=== PATIENT | female | born 1935 | race Caucasian/White ===

== ENCOUNTER 2016-05-17 19:09 | Emergency (ER) | payer MEDICARE, BC ==
[~2016-05-17] VITALS: Ht 170.2 cm; Wt 57.0 kg
[~2016-05-17 19:09] MED LIST: CARV12.5 PO; ESTR1 PO; MEDR2.5 PO; OMEP20CA5 PO; ROSU10 PO; SPIR25 PO; TELM40 PO
[2016-05-17 19:12] VITALS: BP 116/65; PULSE 79; RESP 18; TEMP 97.6; O2SAT 98
[2016-05-17] MEDS ORDERED: SODIUM CHLOR 0.9% 1000 ML INJ 1,000 ML IV SCH (19:39)
--- NOTE | 2016-05-17 19:43 | PD ---
HPI Chief Complaint: GI Complaint Time Seen by Provider: 19:34 Travel History International Travel<30 days: No Contact w/Intl Traveler<30days: No Traveled to known affect area: No History of Present Illness HPI 80-year-old female here for evaluation of nausea, vomiting, and diarrhea. Symptoms started 3 days ago with vomiting followed by diarrhea. The patient took 2 tabs of Imodium and has not had any diarrhea since. Symptoms seemed to improve somewhat yesterday, however today she has felt very nauseous has had few episodes of vomiting as well as dry heaving. Emesis and bowel movements are nonbloody. She denies abdominal pain. No chest pain or dyspnea. No fevers or chills. One of the patient's relatives had similar symptoms about a week ago. Recent cruise 2 weeks ago, no other travel history. PFSH Past Medical History Arthritis: Yes Blood Disorders: No Cancer: No Cardiovascular Problems: Yes (CARDIOMYOPATHY) High Cholesterol: Yes Endocrine: No GERD: Yes Genitourinary: Yes (CONSTANT BLADDER PRESSURE) Headaches: Yes Immune Disorder: No Musculoskeletal: Yes Neurologic: Yes Psychiatric: No Reproductive: Yes (PROLAPSE UTERUS) Respiratory: No Past Surgical History Abdominal Surgery: Yes (CHOLECYSTECTOMY-I&D LIVER ABCESS) Cholecystectomy: Yes Social History Alcohol Use: No Tobacco Use: No Substance Use: No Allergies-Medications (Allergen,Severity, Reaction): Coded Allergies: Amoxicillin (Verified Allergy, Severe, HIVES, 03/27/08) Reported Meds & Prescriptions Reported Meds & Active Scripts Active Zofran Odt (Ondansetron Odt) 4 Mg Tab 4 Mg SL Q8HR PRN Reported Estrace (Estradiol) 1 Mg Tab 1 Mg PO DAILY Provera (Medroxyprogesterone Acetate) 2.5 Mg Tab 2.5 Mg PO DAILY Micardis (Telmisartan) 40 Mg Tab 40 Mg PO HS Aldactone 25 mg (Spironolactone) 25 Mg Tab 25 Mg PO BID Coreg 12.5 mg (Carvedilol) 12.5 Mg Tab 12.5 Mg PO BID Prilosec 20 mg (Omeprazole) 20 Mg Capcr 20 Mg PO DAILY Crestor (Rosuvastatin Calcium) 10 Mg Tab 10 Mg PO DAILY Review of Systems Except as stated in HPI: all other systems reviewed are Neg Physical Exam Narrative GENERAL: Pleasant, well-developed, well-nourished, elderly-appearing female, dry heaving into an emesis bag SKIN: Warm and dry. HEAD: Atraumatic. Normocephalic. EYES: Pupils equal and round. No scleral icterus. No injection or drainage. ENT: Mucous membranes pink and dry. NECK: Trachea midline. No JVD. CARDIOVASCULAR: Regular rate and rhythm. RESPIRATORY: No accessory muscle use. Clear to auscultation. Breath sounds equal bilaterally. GASTROINTESTINAL: Abdomen soft, non-tender, nondistended. MUSCULOSKELETAL: No obvious deformities. No clubbing. No cyanosis. No edema. NEUROLOGICAL: Awake and alert. No obvious cranial nerve deficits. Motor grossly within normal limits. Normal speech. PSYCHIATRIC: Appropriate mood and affect; insight and judgment normal. Data Data Last Documented VS Vital Signs Date Time Temp Pulse Resp B/P Pulse Ox O2 Delivery O2 Flow Rate FiO2 05/17/16 19:52 97.6 79 18 116/65 98 05/17/16 19:51 Room Air Orders Complete Blood Count With Diff (05/17/16 19:39) Comprehensive Metabolic Panel (05/17/16 19:39) Lipase (05/17/16 19:39) Prothrombin Time / Inr (Pt) (05/17/16 19:39) Act Partial Throm Time (Ptt) (05/17/16 19:39) Iv Access Insert/Monitor (05/17/16 19:39) Ecg Monitoring (05/17/16 19:39) Oximetry (05/17/16 19:39) Ondansetron Inj (Zofran Inj) (05/17/16 19:45) Sodium Chlor 0.9% 1000 Ml Inj (Ns 1000 M (05/17/16 19:39) Sodium Chloride 0.9% Flush (Ns Flush) (05/17/16 19:45) Influenzae A/B Antigen (05/17/16 19:39) Oral Rehydration (05/17/16 20:29) Labs Laboratory Tests Test 05/17/16 20:02 White Blood Count 10.3 TH/MM3 Red Blood Count 3.80 MIL/MM3 Hemoglobin 12.0 GM/DL Hematocrit 36.2 % Mean Corpuscular Volume 95.3 FL Mean Corpuscular Hemoglobin 31.6 PG Mean Corpuscular Hemoglobin 33.2 % Concent Red Cell Distribution Width 13.0 % Platelet Count 270 TH/MM3 Mean Platelet Volume 7.8 FL Neutrophils (%) (Auto) 78.6 % Lymphocytes (%) (Auto) 13.7 % Monocytes (%) (Auto) 6.4 % Eosinophils (%) (Auto) 0.8 % Basophils (%) (Auto) 0.5 % Neutrophils # (Auto) 8.0 TH/MM3 Lymphocytes # (Auto) 1.4 TH/MM3 Monocytes # (Auto) 0.7 TH/MM3 Eosinophils # (Auto) 0.1 TH/MM3 Basophils # (Auto) 0.1 TH/MM3 CBC Comment DIFF FINAL Differential Comment Prothrombin Time 10.1 SEC Prothromb Time International 0.9 RATIO Ratio Activated Partial 26.6 SEC Thromboplast Time Sodium Level 140 MEQ/L Potassium Level 4.0 MEQ/L Chloride Level 106 MEQ/L Carbon Dioxide Level 27.8 MEQ/L Anion Gap 6 MEQ/L Blood Urea Nitrogen 17 MG/DL Creatinine 0.73 MG/DL Estimat Glomerular Filtration 77 ML/MIN Rate Random Glucose 118 MG/DL Calcium Level 9.0 MG/DL Total Bilirubin 0.3 MG/DL Aspartate Amino Transf 22 U/L (AST/SGOT) Alanine Aminotransferase 26 U/L (ALT/SGPT) Alkaline Phosphatase 59 U/L Total Protein 7.6 GM/DL Albumin 3.7 GM/DL Lipase 272 U/L MDM Medical Decision Making Medical Screen Exam Complete: Yes Emergency Medical Condition: Yes Differential Diagnosis Gastroenteritis, dehydration, gastritis, electrolyte abnormality Narrative Course Vital signs are within normal limits. CBC is unremarkable. CMP is unremarkable. Lipase is 272. Influenza is negative. The patient was given IV Zofran and a liter of IV fluids and is feeling a lot better. She is no longer nauseous. She is tolerating clear liquids in the emergency department. She is stable for discharge home with outpatient follow- up with her primary care physician this week. She is likely suffering from gastroenteritis. Her abdominal exam shows no tenderness, no peritoneal signs. She will be discharged home with a perception for Zofran. She was informed on when to return to the emergency department. She verbalizes understanding and agreement with plan. Diagnosis Primary Impression: Gastroenteritis Referrals: Primary Care Physician 3 days Additional Instructions: Follow-up with your primary care physician this week. Stay hydrated with plenty of fluids. Return to the emergency department for worsening symptoms or any other concerns. Scripts Ondansetron Odt (Zofran Odt)4 Mg Tab4 Mg SL Q8HR PRN (Nausea/Vomiting) #20 TAB Ref 0 Prov:Raul Williamson MD 05/17/16 Disposition: 01 DISCHARGE HOME Condition: Stable Raul Williamson MD May 17, 2016 19:43 Raul Williamson MD May 17, 2016 19:43
[2016-05-17] MEDS ORDERED: SODIUM CHLORIDE 0.9% FLUSH 5 ML FLUSH IVF PRN (19:45)
[2016-05-17] MEDS ORDERED: ONDANSETRON HCL 4 MG/2 ML VIAL IVP ONE (19:45)
[2016-05-17 19:51] VITALS: RESP 14; O2SAT 98
[2016-05-17 19:52] VITALS: BP 116/65; PULSE 79; RESP 18; TEMP 97.6; O2SAT 98
[2016-05-17 20:13] LABS: BASOPHIL # 0.1 TH/MM3 (0-0.2); BASOPHIL % 0.5 % (0.0-2.0); EOSINOPHIL # 0.1 TH/MM3 (0-0.4); EOSINOPHIL % 0.8 % (0.0-4.0); HEMATOCRIT 36.2 % (35.0-46.0); LYMPH % 13.7 % (9.0-44.0); LYMPHOCYTE # 1.4 TH/MM3 (1.0-4.8); MEAN CELL VOLUME 95.3 FL (80.0-100.0); MEAN CORPUSCULAR HEMOGLOBIN 31.6 PG (27.0-34.0); MEAN CORPUSCULAR HGB CONC 33.2 % (32.0-36.0); MONO % 6.4 % (0.0-8.0); NEUT % 78.6 % (16.0-70.0); PLATELET COUNT 270 TH/MM3 (150-450); WHITE BLOOD COUNT 10.3 TH/MM3 (4.0-11.0)
[2016-05-17 20:15] LABS: HEMO FLAGS DIFF FINAL
[2016-05-17 20:24] LABS: CHLORIDE 106 MEQ/L (98-107); SODIUM (NA) 140 MEQ/L (136-145)
[2016-05-17 20:28] LABS: ANION GAP 6 MEQ/L (5-15); APTT (PATIENT) 26.6 SEC (24.3-30.1); BICARBONATE 27.8 MEQ/L (21.0-32.0); BLOOD UREA NITROGEN 17 MG/DL (7-18); INTERNATIONAL NORMALIZED RATIO 0.9 RATIO; PROTHROMBIN TIME - PATIENT 10.1 SEC (9.8-11.6)
[2016-05-17 20:31] LABS: ALT (GPT) 26 U/L (10-53); AST (GOT) 22 U/L (15-37); GLOMERULAR FILTRATION RATE 77 ML/MIN (>89)
[2016-05-17 20:33] LABS: TOTAL BILIRUBIN ADULT 0.3 MG/DL (0.2-1.0)
[2016-05-17 20:34] LABS: ALKALINE PHOSPHATASE 59 U/L (45-117)
[2016-05-17] MEDS ORDERED: ZOFR4TAB3 SL (20:46)
[2016-05-17 21:25] VITALS: BP 114/60; PULSE 78; RESP 18; O2SAT 98
== END 2016-05-17 21:26 | disposition home or self-care (01) ==
LOC: PHEFT 19:09
DX: K52.9 Noninfective gastroenteritis and colitis, unspecified (principal); E78.00 Pure hypercholesterolemia, unspecified; I42.9 Cardiomyopathy, unspecified
CPT/HCPCS: 80053; 83690; 85025; 85610; 85730; 87804; 96361; 96374; 99284; J2405; J7030

== ENCOUNTER → 2016-08-19 | Outpatient (CLI) | payer MEDICARE, BC ==
[~2016-08-19] MED LIST changes: +ZOFR4TAB3 SL
[2016-08-19 13:24] LABS: HEMATOCRIT 34.2 % (35.0-46.0); MEAN CELL VOLUME 93.9 FL (80.0-100.0); MEAN CORPUSCULAR HEMOGLOBIN 32.1 PG (27.0-34.0); MEAN CORPUSCULAR HGB CONC 34.2 % (32.0-36.0); PLATELET COUNT 264 TH/MM3 (150-450); RED BLOOD COUNT 3.64 MIL/MM3 (4.00-5.30); RED CELL DISTRIBUTION WIDTH 13.7 % (11.6-17.2); REVIEW FLAG FINAL; WHITE BLOOD COUNT 6.2 TH/MM3 (4.0-11.0)
[2016-08-19 14:02] LABS: ANION GAP 8 MEQ/L (5-15); AST (GOT) 14 U/L (15-37); BICARBONATE 28.8 MEQ/L (21.0-32.0); BLOOD UREA NITROGEN 17 MG/DL (7-18); CHLORIDE 106 MEQ/L (98-107); GLOMERULAR FILTRATION RATE 73 ML/MIN (>89); GLUCOSE,FASTING 84 MG/DL (74-99); POTASSIUM 4.1 MEQ/L (3.5-5.1); SODIUM (NA) 143 MEQ/L (136-145)
[2016-08-19 14:06] LABS: ALKALINE PHOSPHATASE 57 U/L (45-117); ALT (GPT) 16 U/L (10-53); HDL CHOLESTEROL 64.3 MG/DL (40.0-60.0); LDL CHOLESTEROL 71 MG/DL (0-99); LDL CHOLESTEROL DIRECT 81 MG/DL (0-99); TOTAL BILIRUBIN ADULT 0.5 MG/DL (0.2-1.0)
== END ==
LOC: PLAB 10:26
PROVIDERS: ATTEND Family Medicine
DX: E78.00 Pure hypercholesterolemia, unspecified (principal); E11.9 Type 2 diabetes mellitus without complications; I10 Essential (primary) hypertension
CPT/HCPCS: 36415; 80053; 80061; 83721; 85027

== ENCOUNTER → 2016-11-25 | Outpatient (CLI) | payer MEDICARE, BC ==
[2016-11-25 13:09] LABS: HEMATOCRIT 34.8 % (35.0-46.0); MEAN CELL VOLUME 94.2 FL (80.0-100.0); MEAN CORPUSCULAR HEMOGLOBIN 32.1 PG (27.0-34.0); MEAN CORPUSCULAR HGB CONC 34.1 % (32.0-36.0); PLATELET COUNT 256 TH/MM3 (150-450); RED BLOOD COUNT 3.69 MIL/MM3 (4.00-5.30); RED CELL DISTRIBUTION WIDTH 13.4 % (11.6-17.2); REVIEW FLAG FINAL; WHITE BLOOD COUNT 5.6 TH/MM3 (4.0-11.0)
[2016-11-25 13:43] LABS: ALT (GPT) 20 U/L (10-53); ANION GAP 7 MEQ/L (5-15); AST (GOT) 17 U/L (15-37); BICARBONATE 28.2 MEQ/L (21.0-32.0); BLOOD UREA NITROGEN 16 MG/DL (7-18); CHLORIDE 105 MEQ/L (98-107); GLOMERULAR FILTRATION RATE 65 ML/MIN (>89); GLUCOSE,FASTING 103 MG/DL (74-99); POTASSIUM 4.2 MEQ/L (3.5-5.1); SODIUM (NA) 140 MEQ/L (136-145)
[2016-11-25 13:46] LABS: ALKALINE PHOSPHATASE 66 U/L (45-117); HDL CHOLESTEROL 65.4 MG/DL (40.0-60.0); LDL CHOLESTEROL 77 MG/DL (0-99); LDL CHOLESTEROL DIRECT 82 MG/DL (0-99); TOTAL BILIRUBIN ADULT 0.6 MG/DL (0.2-1.0)
[2016-11-25 17:14] LABS: HEMOGLOBIN A1a 1.1 %; HEMOGLOBIN A1b 1.6 %; HEMOGLOBIN Ao 85.1 %; HEMOGLOBIN P3 3.8 %
== END ==
LOC: PLAB 09:14
PROVIDERS: ATTEND Family Medicine
DX: E11.9 Type 2 diabetes mellitus without complications (principal); E78.5 Hyperlipidemia, unspecified; I10 Essential (primary) hypertension
CPT/HCPCS: 36415; 80053; 80061; 83036; 83721; 85027

== ENCOUNTER → 2017-03-02 | Outpatient (CLI) | payer MEDICARE, BC ==
[2017-03-02 13:10] LABS: HEMATOCRIT 34.6 % (35.0-46.0); MEAN CELL VOLUME 96.7 FL (80.0-100.0); MEAN CORPUSCULAR HEMOGLOBIN 32.7 PG (27.0-34.0); MEAN CORPUSCULAR HGB CONC 33.8 % (32.0-36.0); PLATELET COUNT 240 TH/MM3 (150-450); RED BLOOD COUNT 3.58 MIL/MM3 (4.00-5.30); RED CELL DISTRIBUTION WIDTH 13.4 % (11.6-17.2); REVIEW FLAG FINAL; WHITE BLOOD COUNT 5.6 TH/MM3 (4.0-11.0)
[2017-03-02 13:17] LABS: ANION GAP 5 MEQ/L (5-15); AST (GOT) 16 U/L (15-37); BICARBONATE 29.7 MEQ/L (21.0-32.0); BLOOD UREA NITROGEN 19 MG/DL (7-18); CHLORIDE 106 MEQ/L (98-107); GLOMERULAR FILTRATION RATE 58 ML/MIN (>89); GLUCOSE,FASTING 95 MG/DL (74-99); POTASSIUM 4.1 MEQ/L (3.5-5.1); SODIUM (NA) 141 MEQ/L (136-145)
[2017-03-02 13:21] LABS: ALKALINE PHOSPHATASE 68 U/L (45-117); ALT (GPT) 19 U/L (10-53); HDL CHOLESTEROL 65.8 MG/DL (40.0-60.0); LDL CHOLESTEROL 60 MG/DL (0-99); LDL CHOLESTEROL DIRECT 78 MG/DL (0-99); TOTAL BILIRUBIN ADULT 0.6 MG/DL (0.2-1.0)
[2017-03-02 15:20] LABS: HEMOGLOBIN A1a 1.3 %; HEMOGLOBIN A1b 1.6 %; HEMOGLOBIN Ao 85.1 %; HEMOGLOBIN LA1C 1.9 %; HEMOGLOBIN P3 3.7 %
== END ==
LOC: PLAB 10:01
PROVIDERS: ATTEND Family Medicine
DX: E11.9 Type 2 diabetes mellitus without complications (principal); E78.2 Mixed hyperlipidemia; I10 Essential (primary) hypertension
CPT/HCPCS: 36415; 80053; 80061; 83036; 83721; 85027

== ENCOUNTER → 2017-06-02 | Outpatient (CLI) | payer MEDICARE, BC ==
[2017-06-02 13:39] LABS: HEMATOCRIT 33.1 % (35.0-46.0); HEMOGLOBIN 11.1 GM/DL (11.6-15.3); MEAN CELL VOLUME 95.2 FL (80.0-100.0); MEAN CORPUSCULAR HGB CONC 33.6 % (32.0-36.0); MEAN PLATELET VOLUME 8.7 FL (7.0-11.0); PLATELET COUNT 299 TH/MM3 (150-450); RED BLOOD COUNT 3.48 MIL/MM3 (4.00-5.30); RED CELL DISTRIBUTION WIDTH 12.9 % (11.6-17.2); WHITE BLOOD COUNT 11.3 TH/MM3 (4.0-11.0)
[2017-06-02 13:59] LABS: ALBUMIN 3.8 GM/DL (3.4-5.0); AST (GOT) 9 U/L (15-37); BICARBONATE 27.1 MEQ/L (21.0-32.0); BLOOD UREA NITROGEN 24 MG/DL (7-18); CALCIUM 9.3 MG/DL (8.5-10.1); CHLORIDE 107 MEQ/L (98-107); CHOLESTEROL 161 MG/DL (120-200); CREATININE 0.83 MG/DL (0.50-1.00); GLOMERULAR FILTRATION RATE 66 ML/MIN (>89); GLUCOSE,FASTING 116 MG/DL (74-99); SODIUM (NA) 141 MEQ/L (136-145)
[2017-06-02 14:06] LABS: ALKALINE PHOSPHATASE 64 U/L (45-117); ALT (GPT) 18 U/L (10-53); CHOLESTEROL/ HDL RATIO 2.06 RATIO; HDL CHOLESTEROL 77.8 MG/DL (40.0-60.0); LDL CHOLESTEROL 65 MG/DL (0-99); LDL CHOLESTEROL DIRECT 71 MG/DL (0-99); TOTAL BILIRUBIN ADULT 0.5 MG/DL (0.2-1.0); TOTAL PROTEIN 6.9 GM/DL (6.4-8.2); TRIGLYCERIDES 93 MG/DL (42-150)
[2017-06-02 16:52] LABS: HEMOGLOBIN A1C 5.9 % (4.3-6.0)
== END ==
LOC: PLAB 09:43
PROVIDERS: ATTEND Family Medicine
DX: E11.9 Type 2 diabetes mellitus without complications (principal); E78.5 Hyperlipidemia, unspecified; I10 Essential (primary) hypertension
CPT/HCPCS: 36415; 80053; 80061; 83036; 83721; 85027

== ENCOUNTER → 2017-09-08 | Outpatient (CLI) | payer MEDICARE, BC ==
[2017-09-08 13:46] LABS: HEMATOCRIT 34.1 % (35.0-46.0); HEMOGLOBIN 11.4 GM/DL (11.6-15.3); MEAN CELL VOLUME 94.5 FL (80.0-100.0); MEAN CORPUSCULAR HEMOGLOBIN 31.6 PG (27.0-34.0); MEAN CORPUSCULAR HGB CONC 33.4 % (32.0-36.0); MEAN PLATELET VOLUME 8.5 FL (7.0-11.0); PLATELET COUNT 259 TH/MM3 (150-450); RED BLOOD COUNT 3.61 MIL/MM3 (4.00-5.30); RED CELL DISTRIBUTION WIDTH 13.6 % (11.6-17.2); WHITE BLOOD COUNT 6.3 TH/MM3 (4.0-11.0)
[2017-09-08 14:13] LABS: ALBUMIN 3.8 GM/DL (3.4-5.0); AST (GOT) 18 U/L (15-37); BLOOD UREA NITROGEN 18 MG/DL (7-18); CALCIUM 9.4 MG/DL (8.5-10.1); CHLORIDE 107 MEQ/L (98-107); CREATININE 0.87 MG/DL (0.50-1.00); GLOMERULAR FILTRATION RATE 62 ML/MIN (>89); GLUCOSE,FASTING 96 MG/DL (74-99); SODIUM (NA) 144 MEQ/L (136-145)
[2017-09-08 14:14] LABS: ALT (GPT) 17 U/L (10-53); CHOLESTEROL 151 MG/DL (120-200); TRIGLYCERIDES 85 MG/DL (42-150)
[2017-09-08 14:27] LABS: ALKALINE PHOSPHATASE 70 U/L (45-117); CHOLESTEROL/ HDL RATIO 2.32 RATIO; HDL CHOLESTEROL 64.9 MG/DL (40.0-60.0); LDL CHOLESTEROL 69 MG/DL (0-99); LDL CHOLESTEROL DIRECT 84 MG/DL (0-99); TOTAL BILIRUBIN ADULT 0.5 MG/DL (0.2-1.0)
[2017-09-08 16:56] LABS: HEMOGLOBIN A1C 5.7 % (4.3-6.0)
== END ==
LOC: PLAB 09:06
PROVIDERS: ATTEND Family Medicine
DX: E11.9 Type 2 diabetes mellitus without complications (principal); E78.2 Mixed hyperlipidemia; I10 Essential (primary) hypertension
CPT/HCPCS: 36415; 80053; 80061; 83036; 83721; 85027

== ENCOUNTER 2018-04-20 18:28 | Observation (INO) ==
[2018-04-20] MEDS ORDERED: Sod Chloride 0.9% Inj 1,000 ML IV.SIG SCH (19:45)
--- NOTE | 2018-04-20 19:56 | ED ---
HPI General Chief complaint: Weakness Stated complaint: Fatigue/low bp Time Seen by Provider: 04/20/18 19:35 Source: patient Mode of arrival: ambulatory Limitations: no limitations History of Present Illness HPI Narrative: 82-year-old female complains of generalized malaise and weakness and low blood pressure. Patient states that she started feeling nausea and weakness since last night. Patient states that she has poor appetite has not been eating much all day today. Patient states that she has not been drinking much all day today either. Patient denies any headache. Patient denies any visual change. Patient denies any chest pain or shortness of breath. Patient denies abdominal pain. Patient denies any focal weakness or numbness of the extremity. Patient is on carvedilol and not sure why she is on it. Patient states that she takes carvedilol 2 times a day however did not take one this evening. Patient also on Crestor and omeprazole. Patient denies any coughing congestion. Patient denies any dysuria or frequency. Patient denies any fever chills or back pain. Patient states that her systolic blood pressure usually runs around 110-100 range. Patient denies any blood per stool. Patient states that her blood pressure was 85/45 this morning. Patient states that her granddaughter visited her recently and the granddaughter had a fever and stomach problems. Patient states that she had recent weight loss. Complaint: Reports generalized weakness Onset (ago): hour(s) Duration: constant Location: Reports generalized Migration: Reports none Severity: moderate Relieving factors: none Exacerbating factors: none Associated symptoms: Reports denies other symptoms and loss of appetite Related Data Home Medications Medication Instructions Recorded Confirmed carvedilol 3.125 mg PO BID 04/20/18 04/20/18 omeprazole 40 mg PO DAILY 04/20/18 04/20/18 rosuvastatin [Crestor] 5 mg PO DAILY 04/20/18 04/20/18 Allergies Allergy/AdvReac Type Severity Reaction Status Date / Time amoxicillin Allergy Severe HIVES Verified 04/20/18 18:35 Review of Systems ROS: all other systems reviewed are negative [facility] Medical History Medical History History of high cholesterol (Acute) Social History Social History Substance History: No History of Abuse Smoking Status: Never smoker How Often Do You Have a Drink Containing Alcohol: Never Recent Travel in [facility] within the Last 8 Weeks: No Recent Out of Country Travel within the Last 8 Weeks: No Immunization History Tetanus Immunization: Unsure Exam Narrative Exam Narrative: GENERAL: Well-nourished, well-developed patient. SKIN: Focused skin assessment warm/dry. HEAD: Normocephalic. EYES: No scleral icterus. No injection or drainage. NECK: Supple, trachea midline. No JVD or lymphadenopathy. CARDIOVASCULAR: Regular rate and rhythm without murmurs, gallops, or rubs. RESPIRATORY: Breath sounds equal bilaterally. No accessory muscle use. GASTROINTESTINAL: Abdomen soft, non-tender, nondistended. MUSCULOSKELETAL: No cyanosis, or edema. BACK: Nontender without obvious deformity. No CVA tenderness. Neurologic exam normal. Course Initial Documented Vital Signs Temperature 97.7 F 04/20/18 18:36 Pulse Rate 67 04/20/18 18:36 Respiratory Rate 14 04/20/18 18:36 Blood Pressure 95/50 L 04/20/18 18:36 Pulse Oximetry 98 04/20/18 18:36 Last Documented Vital Signs Temperature 97.7 F 04/20/18 18:36 Pulse Rate 59 L 04/20/18 20:57 Respiratory Rate 16 04/20/18 20:57 Blood Pressure 95/53 L 04/20/18 20:57 Pulse Oximetry 99 04/20/18 20:57 Medical Decision Making MDM Narrative Medical decision making narrative: 82-year-old female with generalized malaise and weakness and hypotension. Patient is on carvedilol. Normal saline solution 1 L IV bolus. Normal saline solution 100 cc an hour. Medical Screen Exam Complete: Yes Emergency Medical Condition: Yes Differential Diagnosis Differential Diagnosis: Differential diagnosis including side effect of medication, dehydration, electrolyte imbalance, anemia. Lab Data Lab results reviewed: Yes I reviewed the patient's lab results. Result diagrams: 04/20/18 20:00 04/20/18 20:00 Lab Results 04/20/18 04/20/18 04/20/18 Range/Units 20:00 20:00 20:00 CBC w Diff Auto diff final WBC 5.2 (4.0-11.0) th/mm3 RBC 3.25 L (4.00-5.30) mil/mm3 Hgb 10.0 L (11.6-15.3) gm/dL Hct 30.3 L (35.0-46.0) % MCV 93.2 (80.0-100.0) fL MCH 30.8 (27.0-34.0) pg MCHC 33.0 (32.0-36.0) % RDW 13.6 (11.6-17.2) % Plt Count 189 (150-450) th/mm3 MPV 9.3 (7.0-11.0) fL Neut % (Auto) 74.6 H (16.0-70.0) % Lymph % (Auto) 7.3 L (9.0-44.0) % Bates % (Auto) 17.7 H (0.0-8.0) % Eos % (Auto) 0.2 (0.0-4.0) % Baso % (Auto) 0.2 (0.0-2.0) % Neut # (Auto) 3.9 (1.8-7.7) th/mm3 Lymph # (Auto) 0.4 L (1.0-4.8) th/mm3 Bates # (Auto) 0.9 (0.0-0.9) th/mm3 Eos # (Auto) 0.0 (0.0-0.4) th/mm3 Baso # (Auto) 0.0 (0.0-0.2) th/mm3 WBC Differential . Differential Comment . PT 10.6 (9.8-11.6) sec INR 1.0 Ratio Sodium 137 (136-145) meq/L Potassium 3.9 (3.5-5.1) meq/L Chloride 102 (98-107) meq/L Carbon Dioxide 27.4 (21.0-32.0) meq/L Anion Gap 8 (5-15) meq/L BUN 21 H (7-18) mg/dL Creatinine 0.78 (0.50-1.00) mg/dL Estimated GFR 71 L (>89) mL/min Random Glucose 99 (74-106) mg/dL Calcium 8.1 L (8.5-10.1) mg/dL Phosphorus 3.9 (2.5-4.9) mg/dL Magnesium 2.4 (1.5-2.5) mg/dL Total Bilirubin 0.5 (0.2-1.0) mg/dL AST 15 (15-37) U/L ALT 15 (10-53) U/L Alkaline Phosphatase 62 (45-117) U/L Total Creatine Kinase 34 (26-192) U/L Troponin I Less than 0.02 L (0.02-0.05) ng/mL B-Natriuretic Peptide (0-100) pg/mL Total Protein 6.4 (6.4-8.2) g/dL Albumin 3.3 L (3.4-5.0) g/dL TSH 0.754 (0.358-3.740) uIU/mL Urine Color (Yellw/Straw) Urine Clarity (Clear) Urine pH (5.0-8.5) Ur Specific Gill (1.002-1.035) Urine Protein (Neg-Trace) mg/dL Urine Glucose (UA) (Negative) mg/dL Urine Ketones (Negative) mg/dL Urine Occult Blood (Negative) Urine Nitrate (Negative) Urine Bilirubin (Negative) Urine Urobilinogen (Less than 2) mg/dL Ur Leukocyte Esterase (Negative) Urine RBC (0-3) /hpf Urine WBC (0-5) /hpf Ur Squamous Epith Cells (0-5) /hpf Urine Mucus (Occasional) /lpf Micro UA Comment Ur Microscopic Review Urine Culture Comments 04/20/18 04/20/18 Range/Units 20:00 20:00 CBC w Diff WBC (4.0-11.0) th/mm3 RBC (4.00-5.30) mil/mm3 Hgb (11.6-15.3) gm/dL Hct (35.0-46.0) % MCV (80.0-100.0) fL MCH (27.0-34.0) pg MCHC (32.0-36.0) % RDW (11.6-17.2) % Plt Count (150-450) th/mm3 MPV (7.0-11.0) fL Neut % (Auto) (16.0-70.0) % Lymph % (Auto) (9.0-44.0) % Bates % (Auto) (0.0-8.0) % Eos % (Auto) (0.0-4.0) % Baso % (Auto) (0.0-2.0) % Neut # (Auto) (1.8-7.7) th/mm3 Lymph # (Auto) (1.0-4.8) th/mm3 Bates # (Auto) (0.0-0.9) th/mm3 Eos # (Auto) (0.0-0.4) th/mm3 Baso # (Auto) (0.0-0.2) th/mm3 WBC Differential Differential Comment PT (9.8-11.6) sec INR Ratio Sodium (136-145) meq/L Potassium (3.5-5.1) meq/L Chloride (98-107) meq/L Carbon Dioxide (21.0-32.0) meq/L Anion Gap (5-15) meq/L BUN (7-18) mg/dL Creatinine (0.50-1.00) mg/dL Estimated GFR (>89) mL/min Random Glucose (74-106) mg/dL Calcium (8.5-10.1) mg/dL Phosphorus (2.5-4.9) mg/dL Magnesium (1.5-2.5) mg/dL Total Bilirubin (0.2-1.0) mg/dL AST (15-37) U/L ALT (10-53) U/L Alkaline Phosphatase (45-117) U/L Total Creatine Kinase (26-192) U/L Troponin I (0.02-0.05) ng/mL B-Natriuretic Peptide 245 H (0-100) pg/mL Total Protein (6.4-8.2) g/dL Albumin (3.4-5.0) g/dL TSH (0.358-3.740) uIU/mL Urine Color Yellow (Yellw/Straw) Urine Clarity Clear (Clear) Urine pH 5.5 (5.0-8.5) Ur Specific Gill 1.025 (1.002-1.035) Urine Protein Negative (Neg-Trace) mg/dL Urine Glucose (UA) Negative (Negative) mg/dL Urine Ketones Negative (Negative) mg/dL Urine Occult Blood Small H (Negative) Urine Nitrate Negative (Negative) Urine Bilirubin Negative (Negative) Urine Urobilinogen 0.2 (Less than 2) mg/dL Ur Leukocyte Esterase Negative (Negative) Urine RBC 0-3 (0-3) /hpf Urine WBC 0-5 (0-5) /hpf Ur Squamous Epith Cells 0-5 (0-5) /hpf Urine Mucus Few H (Occasional) /lpf Micro UA Comment Culture not ind Ur Microscopic Review Microscopic reviewed Urine Culture Comments Culture not ind Imaging Data Attestation: I personally reviewed and interpreted this imaging study as follows : Radiologist's impression: Chest X-Ray 04/20/18 19:45 CONCLUSION: 1. No acute cardiopulmonary disease. There is no evidence of pneumonia. 2. Right apical pleural parenchymal change again noted characteristic of scarring. 3. Moderate size hiatal hernia which is increased in size from the prior study. Discharge Plan Discharge Disposition Patient Disposition: ED Admit(ED Internal Use Only) Discharge Details Diagnosis: Acute hypotension, Acute dehydration Physicians Team ED Provider: Blayne Christian Primary Care Provider: Eren Darnell Rxs /Orders / Referrals /Forms Prescriptions: No Action omeprazole 40 mg Capsule,Delayed Release(Dr/Ec) 40 mg PO DAILY RF: 0 carvedilol 3.125 mg Tablet 3.125 mg PO BID RF: 0 rosuvastatin [Crestor] 5 mg Tablet 5 mg PO DAILY RF: 0 Status ED Status: With Doctor
--- NOTE | 2018-04-20 20:15 | XR ---
EXAM DATE: 04/20/2018 8:11 PM EST AGE/SEX: 82 years / Female INDICATIONS: Short of breath, fatigue. CLINICAL DATA: This is the patient's initial encounter. Patient reports that signs and symptoms have been present for 1 day and indicates a pain score of 0/10. MEDICAL/SURGICAL HISTORY: None. None. COMPARISON: POI, XR CHEST PA AND LAT, 10/24/2015. . FINDINGS: A single AP view of the chest demonstrates the lungs to be symmetrically aerated without evidence of mass, infiltrate or effusion. There is a moderate size retrocardiac hiatal hernia. Right apical pleu ral parenchymal changes are again noted consistent with scarring. The cardiomediastinal contours are unremarkable. Osseous structures are intact. CONCLUSION: 1. No acute cardiopulmonary disease. There is no evidence of pneumonia. 2. Right apical pleural parenchymal change again noted characteristic of scarring. 3. Moderate size hiatal hernia which is increased in size from the prior study. Electronically signed by: Nick Jama MD 04/20/2018 8:13 PM EST
[2018-04-20 20:59] LABS: Bilirubin,Urine Negative (Negative); Clarity,Urine Clear (Clear); Color,Urine Yellow (Yellw/Straw); Glucose,Urine (UA) Negative (Negative); Leukocyte Esterase,Urine Negative (Negative); Nitrite,Urine Negative (Negative); PH,Urine 5.5 (5.0-8.5); Specific Gravity,Urine 1.025 (1.002-1.035); Urobilinogen,Urine 0.2 mg/dL (Less than 2)
[2018-04-20 21:08] LABS: Chloride 102 meq/L (98-107); Mucus,Urine Few /lpf (Occasional); Potassium 3.9 meq/L (3.5-5.1); RBC,Urine 0-3 /hpf (0-3); Sodium 137 meq/L (136-145); Squamous Epithelial Cell,Urine 0-5 /hpf (0-5); WBC,Urine 0-5 /hpf (0-5)
[2018-04-20 21:11] LABS: Calcium 8.1 mg/dL (8.5-10.1)
[2018-04-20 21:12] LABS: Albumin 3.3 g/dL (3.4-5.0); Anion Gap 8 meq/L (5-15); Blood Urea Nitrogen 21 mg/dL (7-18); Carbon Dioxide 27.4 meq/L (21.0-32.0); Glucose,Random 99 mg/dL (74-106); Magnesium 2.4 mg/dL (1.5-2.5); Prothrombin Time 10.6 sec (9.8-11.6)
[2018-04-20 21:15] LABS: Alanine Aminotransferase 15 U/L (10-53); Aspartate Aminotransferase 15 U/L (15-37); Glomerular Filtration Rate 71 mL/min (>89); Phosphorus 3.9 mg/dL (2.5-4.9)
[2018-04-20 21:17] LABS: Total Protein 6.4 g/dL (6.4-8.2)
[2018-04-20 21:18] LABS: Alkaline Phosphatase 62 U/L (45-117)
[2018-04-20 21:21] LABS: Baso % (Auto) 0.2 % (0.0-2.0); Eos % (Auto) 0.2 % (0.0-4.0); Hematocrit 30.3 % (35.0-46.0); Lymph # (Auto) 0.4 th/mm3 (1.0-4.8); Lymph % (Auto) 7.3 % (9.0-44.0); Mean Corpuscular Hemoglobin 30.8 pg (27.0-34.0); Mean Corpuscular Volume 93.2 fL (80.0-100.0); Mean Platelet Volume 9.3 fL (7.0-11.0); Mono # (Auto) 0.9 th/mm3 (0.0-0.9); Mono % (Auto) 17.7 % (0.0-8.0); Neut # (Auto) 3.9 th/mm3 (1.8-7.7); Neut % (Auto) 74.6 % (16.0-70.0); Platelet Count 189 th/mm3 (150-450); Red Blood Count 3.25 mil/mm3 (4.00-5.30); Red Cell Distribution Width 13.6 % (11.6-17.2); White Blood Count 5.2 th/mm3 (4.0-11.0)
[2018-04-20 21:26] LABS: Thyroid Stimulating Hormone 0.754 uIU/mL (0.358-3.740)
[2018-04-20 21:33] LABS: Creatine Kinase 34 U/L (26-192)
[2018-04-20] MEDS ORDERED: Bisacodyl 10 MG Supp RECTAL PRN (22:04)
[2018-04-20] MEDS ORDERED: Acetaminophen 325 MG Tablet PO PRN (22:04)
[2018-04-20] MEDS: Sod Chloride 0.9% Inj 1,000 ML IV.CONT SCH (23:00)
[2018-04-20] MEDS: Heparin - SQ 10,000 UNITS/ML Vial SQ SCH (23:00)
[2018-04-21] MEDS: Sod Chloride 0.9% Inj 1,000 ML IV.CONT SCH ×4 (01:53→22:12)
[2018-04-21 06:45] LABS: Baso % (Auto) 0.8 % (0.0-2.0); Eos % (Auto) 0.1 % (0.0-4.0); Hematocrit 28.6 % (35.0-46.0); Hemoglobin 9.4 gm/dL (11.6-15.3); Lymph # (Auto) 0.6 th/mm3 (1.0-4.8); Mean Corpuscular Hemoglobin 30.9 pg (27.0-34.0); Mean Corpuscular Volume 93.7 fL (80.0-100.0); Mean Platelet Volume 8.6 fL (7.0-11.0); Mono # (Auto) 0.6 th/mm3 (0.0-0.9); Neut # (Auto) 2.4 th/mm3 (1.8-7.7); Neut % (Auto) 63.1 % (16.0-70.0); Platelet Count 169 th/mm3 (150-450); Red Blood Count 3.05 mil/mm3 (4.00-5.30); Red Cell Distribution Width 13.8 % (11.6-17.2); White Blood Count 3.6 th/mm3 (4.0-11.0)
[2018-04-21 06:51] LABS: Potassium 3.6 meq/L (3.5-5.1)
[2018-04-21 06:56] LABS: Calcium 7.8 mg/dL (8.5-10.1); Carbon Dioxide 25.2 meq/L (21.0-32.0)
[2018-04-21] MEDS: Senna/Docusate Sodium 8.6/50 MG Tablet PO SCH ×2 (08:31→21:14)
--- NOTE | 2018-04-21 08:57 | P.HP ---
History of Present Illness Service: Hospitalist Primary Care Physician: Eren Darnell MD Chief Complaint: Generalized weakness. History of Present Illness: Ms. Oswald is a pleasant 82-year-old female with a history of GERD, hyperlipidemia who presented to the emergency department on 04/20/2018 due to generalized weakness. Her symptoms started 2 days prior to this admission. She has not been eating or drinking well in the last 2 days. This morning she reports 4-5 loose bowel movements. She denies any recent antibiotics use. Her family members were here from out of town and 2 of them had diarrhea recently. Patient denies any nausea vomiting. Patient denies any chest pain, shortness of breath, fever or chills. She denies any urinary symptoms. Past medical history: Liver abscess when she was a child, hyperlipidemia, GERD Past surgical history: Liver abscess surgery at the age of 9, hysterectomy, knee surgeries. Social history: Patient denies using tobacco or alcohol. Family history: No family history of Alzheimer's or Parkinson's. Review of Systems All other systems reviewed negative except as stated in HPI [facility] - History History Provided By: Patient - Medical History Medical History: Medical History (Last Reviewed 04/21/18 @ 08:54 by Raheem Martinez DO) History of high cholesterol - Tobacco History Second Hand Smoke Exposure: No Smoking Status: Never smoker - Alcohol History How Often Do You Have a Drink Containing Alcohol: Never - Substance Use History Substance History: No History of Abuse - Travel History Recent Travel in the [place] Within the Last 8 Weeks: No Recent Travel Out of the Country Within the Last 8 Weeks: No - Immunization History Tetanus Immunization: Unsure Medications and Allergies Active Medications: Active Medications Acetaminophen (Tylenol) 650 mg PO Q4H PRN PRN Reason: Temp > 100.4 Al Hydroxide/Mg Hydroxide (Milk Of Magnesia Liq) 30 ml PO Q12H PRN PRN Reason: Mild Constipation Bisacodyl (Dulcolax Supp) 10 mg RECTAL DAILY PRN PRN Reason: SEVERE CONSITIPATION Heparin Sodium (Porcine) (Heparin Inj) 5,000 units SQ Q12H [facility] Last Admin: 04/20/18 23:00 Dose: 5,000 units Sodium Chloride (Ns Inj) 1,000 mls @ 100 mls/hr IV.CONT .Q10H [facility] Last Admin: 12/06/18 01:53 Dose: 100 mls/hr Sodium Chloride (Ns Inj) 1,000 mls @ 1,000 mls/hr IV.SIG BOLUS [facility] Stop: 04/21/18 09:59 Last Admin: 04/21/18 08:30 Dose: 1,000 mls/hr Lactulose (Lactulose Liq) 30 ml PO DAILY PRN PRN Reason: SEVERE CONSITIPATION Ondansetron HCl (Zofran Inj) 4 mg IV.PUSH Q6H PRN PRN Reason: NAUSEA OR VOMITING Senna/Docusate Sodium (Lizeth-Colace) 1 tab PO BID [facility] Last Admin: 04/21/18 08:31 Dose: Not Given Sennosides (Senokot) 17.2 mg PO Q12H PRN PRN Reason: Moderate Constipation Sodium Chloride (Ns Flush) 2 ml IV.FLUSH BID [facility] Sodium Chloride (Ns Flush) 2 ml IV.FLUSH PRN PRN PRN Reason: FLUSH AFTER USING IV ACCESS Last Admin: 04/21/18 01:53 Dose: 2 ml Allergies Allergy/AdvReac Type Severity Reaction Status Date / Time amoxicillin Allergy Severe HIVES Verified 04/20/18 18:35 Home Medications Medication Instructions Recorded Confirmed Type carvedilol 3.125 mg PO BID 04/20/18 04/20/18 History omeprazole 40 mg PO DAILY 04/20/18 04/20/18 History rosuvastatin [Crestor] 5 mg PO DAILY 04/20/18 04/20/18 History Exam Vital signs: Vital Signs 04/20/18 18:36 04/20/18 19:13 04/20/18 20:00 Temperature 97.7 F Pulse Rate 67 70 70 Respiratory Rate 14 16 Blood Pressure 95/50 L 94/45 L Pulse Oximetry 98 98 98 04/20/18 20:57 04/20/18 21:52 04/20/18 23:00 Temperature Pulse Rate 59 L 60 59 L Respiratory Rate 16 16 16 Blood Pressure 95/53 L 92/48 L 94/58 L Pulse Oximetry 99 98 97 04/21/18 00:00 04/21/18 01:13 04/21/18 01:45 Temperature 98.6 F Pulse Rate 59 L 60 60 Respiratory Rate 20 16 Blood Pressure 88/43 L 92/48 L Pulse Oximetry 95 99 12/06/18 04:00 Temperature 99.5 F Pulse Rate 58 L Respiratory Rate 20 Blood Pressure 92/44 L Pulse Oximetry 97 Intake & Output 04/20/18 04/21/18 04/21/18 18:59 06:59 18:59 Intake Total 2520 / 2520 Output Total 75 / 75 Balance 2445 / 2445 Weight 56 kg 60.1 kg Intake: IV 2400 / 2400 NS Inj 1,000 ML @ 100 mls/hr IV 1400 / 1400 .CONT .Q10H [facility] Rx#:[id number] NS Inj 1,000 ML @ 1000 mls/hr 1000 / 1000 IV.SIG BOLUS [facility] Rx#:[id number] Oral 120 / 120 Output: Urine 75 / 75 Other: # Voids 3 Weight On Admission 60.3 kg Narrative: GENERAL: This is a well-nourished, well-developed patient, in no apparent distress. SKIN: No rashes, ecchymoses or lesions. Warm and dry. HEAD: Atraumatic. Normocephalic. No temporal or scalp tenderness. EYES: Pupils equal round and reactive. No injection or drainage. ENT: Nose without bleeding, purulent drainage or septal hematoma. Airway patent. NECK: Trachea midline. No lymphadenopathy. Supple, nontender, no meningeal signs. CARDIOVASCULAR: Regular rate and rhythm without murmurs, gallops, or rubs. No JVD. RESPIRATORY: Clear to auscultation. Breath sounds equal bilaterally. No wheezes , rales, or rhonchi. GASTROINTESTINAL: Abdomen soft, non-tender, nondistended. No guarding. MUSCULOSKELETAL: Extremities without clubbing, cyanosis, or edema. NEUROLOGICAL: Awake and alert. Cranial nerves II through XII intact. No focal neurological deficits. Normal speech. Results - Labs CBC & Chem 7: 04/21/18 05:55 04/21/18 05:55 Labs: Laboratory Results - last 24 hr 04/20/18 04/20/18 04/20/18 20:00 20:00 20:00 CBC w Diff Auto diff final WBC 5.2 RBC 3.25 L Hgb 10.0 L Hct 30.3 L MCV 93.2 MCH 30.8 MCHC 33.0 RDW 13.6 Plt Count 189 MPV 9.3 Neut % (Auto) 74.6 H Lymph % (Auto) 7.3 L [place] % (Auto) 17.7 H Eos % (Auto) 0.2 Baso % (Auto) 0.2 Neut # (Auto) 3.9 Lymph # (Auto) 0.4 L [place] # (Auto) 0.9 Eos # (Auto) 0.0 Baso # (Auto) 0.0 WBC Differential . Differential Comment . PT 10.6 INR 1.0 Sodium 137 Potassium 3.9 Chloride 102 Carbon Dioxide 27.4 Anion Gap 8 BUN 21 H Creatinine 0.78 Estimated GFR 71 L Random Glucose 99 Calcium 8.1 L Phosphorus 3.9 Magnesium 2.4 Total Bilirubin 0.5 AST 15 ALT 15 Alkaline Phosphatase 62 Total Creatine Kinase 34 Troponin I Less than 0.02 L B-Natriuretic Peptide Total Protein 6.4 Albumin 3.3 L TSH 0.754 Urine Color Urine Clarity Urine pH Ur Specific [place] Urine Protein Urine Glucose (UA) Urine Ketones Urine Occult Blood Urine Nitrate Urine Bilirubin Urine Urobilinogen Ur Leukocyte Esterase Urine RBC Urine WBC Ur Squamous Epith Cells Urine Mucus Micro UA Comment Ur Microscopic Review Urine Culture Comments 04/20/18 04/20/18 04/21/18 20:00 20:00 05:55 CBC w Diff WBC RBC Hgb Hct MCV MCH MCHC RDW Plt Count MPV Neut % (Auto) Lymph % (Auto) [place] % (Auto) Eos % (Auto) Baso % (Auto) Neut # (Auto) Lymph # (Auto) [place] # (Auto) Eos # (Auto) Baso # (Auto) WBC Differential Differential Comment PT INR Sodium 141 Potassium 3.6 Chloride 108 H Carbon Dioxide 25.2 Anion Gap 8 BUN 17 Creatinine 0.67 Estimated GFR 84 L Random Glucose 84 Calcium 7.8 L Phosphorus Magnesium Total Bilirubin AST ALT Alkaline Phosphatase Total Creatine Kinase Troponin I B-Natriuretic Peptide 245 H Total Protein Albumin TSH Urine Color Yellow Urine Clarity Clear Urine pH 5.5 Ur Specific [place] 1.025 Urine Protein Negative Urine Glucose (UA) Negative Urine Ketones Negative Urine Occult Blood Small H Urine Nitrate Negative Urine Bilirubin Negative Urine Urobilinogen 0.2 Ur Leukocyte Esterase Negative Urine RBC 0-3 Urine WBC 0-5 Ur Squamous Epith Cells 0-5 Urine Mucus Few H Micro UA Comment Culture not ind Ur Microscopic Review Microscopic reviewed Urine Culture Comments Culture not ind 04/21/18 05:55 CBC w Diff Auto diff final WBC 3.6 L RBC 3.05 L Hgb 9.4 L Hct 28.6 L MCV 93.7 MCH 30.9 MCHC 33.0 RDW 13.8 Plt Count 169 MPV 8.6 Neut % (Auto) 63.1 Lymph % (Auto) 18.0 [place] % (Auto) 18.0 H Eos % (Auto) 0.1 Baso % (Auto) 0.8 Neut # (Auto) 2.4 Lymph # (Auto) 0.6 L [place] # (Auto) 0.6 Eos # (Auto) 0.0 Baso # (Auto) 0.0 WBC Differential . Differential Comment . PT INR Sodium Potassium Chloride Carbon Dioxide Anion Gap BUN Creatinine Estimated GFR Random Glucose Calcium Phosphorus Magnesium Total Bilirubin AST ALT Alkaline Phosphatase Total Creatine Kinase Troponin I B-Natriuretic Peptide Total Protein Albumin TSH Urine Color Urine Clarity Urine pH Ur Specific [place] Urine Protein Urine Glucose (UA) Urine Ketones Urine Occult Blood Urine Nitrate Urine Bilirubin Urine Urobilinogen Ur Leukocyte Esterase Urine RBC Urine WBC Ur Squamous Epith Cells Urine Mucus Micro UA Comment Ur Microscopic Review Urine Culture Comments - Imaging Impressions Chest X-Ray 04/20/18 19:45 CONCLUSION: 1. No acute cardiopulmonary disease. There is no evidence of pneumonia. 2. Right apical pleural parenchymal change again noted characteristic of scarring. 3. Moderate size hiatal hernia which is increased in size from the prior study. Caprini VTE Risk Assessment Caprini VTE Risk Assessment: No/Low Risk (score <= 1) Caprini Risk Assessment Model: Point Value = 1 Point Value = 2 Point Value = 3 Point Value = 5 Age 41-60 Minor surgery BMI > 25 kg/m2 Swollen legs Varicose veins or History of unexplained or recurrent spontaneous Oral contraceptives or hormone replacement Sepsis (< 1 month) Serious lung disease, including pneumonia (< 1 month) Abnormal pulmonary function Acute myocardial infarction Congestive heart failure (< 1 month) History of inflammatory bowel disease Medical patient at bed rest Age 61-74 Arthroscopic surgery Major open surgery (> 45 min) Laparoscopic surgery (> 45 min) Malignancy Confined to bed (> 72 hours) Immobilizing plaster cast Central venous access Age >= 75 History of VTE Family history of VTE Factor V Leiden Prothrombin [id number] Lupus anticoagulant Anticardiolipin antibodies Elevated serum homocysteine Heparin-induced thrombocytopenia Other congenital or acquired thrombophilia Stroke (< 1 month) Elective arthroplasty Hip, pelvis, or leg fracture Acute spinal cord injury (< 1 month) Prophylaxis Regimen: Total Risk Factor Score Risk Level Prophylaxis Regimen 0-1 Low Early ambulation 2 Moderate Order ONE of the following: *Sequential Compression Device (SCD) *Heparin 5000 units SQ BID 3-4 Higher Order ONE of the following medications: *Heparin 5000 units SQ TID *Enoxaparin/Lovenox 40 mg SQ daily (WT < 150 kg, CrCl > 30 mL/min) *Enoxaparin/Lovenox 30 mg SQ daily (WT < 150 kg, CrCl > 10-29 mL/min) *Enoxaparin/Lovenox 30 mg SQ BID (WT < 150 kg, CrCl > 30 mL/min) AND/OR *Sequential Compression Device (SCD) 5 or more Highest Order ONE of the following medications: *Heparin 5000 units SQ TID (Preferred with Epidurals) *Enoxaparin/Lovenox 40 mg SQ daily (WT < 150 kg, CrCl > 30 mL/min) *Enoxaparin/Lovenox 30 mg SQ daily (WT < 150 kg, CrCl > 10-29 mL/min) *Enoxaparin/Lovenox 30 mg SQ BID (WT < 150 kg, CrCl > 30 mL/min) AND *Sequential Compression Device (SCD) Assessment and Plan - Plan Ms. Oswald is an 82-year-old female with a history of hyperlipidemia, GERD who presented to the emergency department on 04/20/2018 due to generalized weakness for 2 days. She started having 4-5 loose bowel movement on 04/21/2018. Recently some of her family members had diarrhea as well. She denies any chest pain, shortness of breath, fever or chills. No abdominal pain. Generalized weakness Etiology unclear. Possibly viral. Probable viral gastroenteritis No recent antibiotics use. We will send stool for C. difficile PCR If C. difficile PCR negative, we can start patient on anti-diarrheal medication. Continue IV fluid 100cc/hour. Hypotension Patient's blood pressure was 86/50 this morning. We will provide 1 L of IV fluid bolus Heart rate inappropriately low. Could be due to carvedilol use. Discontinue carvedilol for now. Hyperlipidemia -continue statin. Full code. Heparin SQ.
[2018-04-21] MEDS ORDERED: Sod Chloride 0.9% Inj 1,000 ML IV.SIG SCH (09:00)
[2018-04-21] MEDS: Heparin - SQ 10,000 UNITS/ML Vial SQ SCH ×2 (12:34→22:13)
[2018-04-21] MEDS ORDERED: Diphenoxylate/Atropine 2.5/0.025 MG Tablet PO PRN (15:26)
--- NOTE | 2018-04-21 17:39 | ECG ---
Date Performed: 04/20/2018 Time Performed: 20:22:48 PTAGE: 82 years EKG: SINUS BRADYCARDIA WITH FREQUENT VENTRICULAR PREMATURE COMPLEXES LEFT VENTRICULAR HYPERTROPH Y AND ST-T CHANGE Compared to previous tracing, LVH is new. Nonspecific ST-T wave changes due to LVH are new in lateral leads. Clinical correlation is recommended ABNORMAL ECG PREVIOUS TRACING : 03/23/2008 13.20 DOCTOR: Edith Lawson Interpretating Date/Time 04/21/2018 17:38:44
[2018-04-22] MEDS: Sod Chloride 0.9% Inj 1,000 ML IV.CONT SCH (06:11)
[2018-04-22 08:21] VITALS: RESP 20
[2018-04-22] MEDS: Senna/Docusate Sodium 8.6/50 MG Tablet PO SCH (08:50)
[2018-04-22] MEDS: Heparin - SQ 10,000 UNITS/ML Vial SQ SCH (11:20)
[2018-04-22 12:14] VITALS: BP 101/56; PULSE 89; TEMP 97.5; O2SAT 97
--- NOTE | 2018-04-22 12:53 | P.HPIM ---
History of Present Illness Primary Care Physician: Eren Darnell MD History of Present Illness: Ms. Oswald is a pleasant 82-year-old female with a history of GERD, hyperlipidemia who presented to the emergency department on 04/20/2018 due to generalized weakness. Her symptoms started 2 days prior to this admission. She has not been eating or drinking well in the last 2 days. This morning she reports 4-5 loose bowel movements. She denies any recent antibiotics use. Her family members were here from out of town and 2 of them had diarrhea recently. Patient denies any nausea vomiting. Patient denies any chest pain, shortness of breath, fever or chills. She denies any urinary symptoms. Past medical history: Liver abscess when she was a child, hyperlipidemia, GERD Past surgical history: Liver abscess surgery at the age of 9, hysterectomy, knee surgeries. Social history: Patient denies using tobacco or alcohol. Family history: No family history of Alzheimer's or Parkinson's. Review of Systems Review of Systems: all other systems reviewed are negative [facility] Medical History Medical History History of high cholesterol (Acute) Social History Social History Substance History: No History of Abuse Second Hand Smoke Exposure: No Smoking Status: Never smoker How Often Do You Have a Drink Containing Alcohol: Never Recent Travel in [facility] within the Last 8 Weeks: No Recent Out of Country Travel within the Last 8 Weeks: No Immunization History Tetanus Immunization: Unsure Medications and Allergies Allergies Allergy/AdvReac Type Severity Reaction Status Date / Time amoxicillin Allergy Severe HIVES Verified 04/20/18 18:35 Home Medications Medication Instructions Recorded Confirmed Type omeprazole 40 mg PO DAILY 04/20/18 04/20/18 History rosuvastatin [Crestor] 5 mg PO DAILY 04/20/18 04/20/18 History Active Medications: Active Medications Acetaminophen (Tylenol) 650 mg PO Q4H PRN PRN Reason: Temp > 100.4 Al Hydroxide/Mg Hydroxide (Milk Of Magnesia Liq) 30 ml PO Q12H PRN PRN Reason: Mild Constipation Atorvastatin Calcium (Lipitor) 5 mg PO DAILY [facility] Last Admin: 04/22/18 08:49 Dose: 5 mg Bisacodyl (Dulcolax Supp) 10 mg RECTAL DAILY PRN PRN Reason: SEVERE CONSITIPATION Diphenoxylate HCl/Atropine (Lomotil) 1 tab PO Q6H PRN PRN Reason: [facility] Last Admin: 04/21/18 17:20 Dose: 1 tab Heparin Sodium (Porcine) (Heparin Inj) 5,000 units SQ Q12H [facility] Last Admin: 04/22/18 11:20 Dose: 5,000 units Sodium Chloride (Ns Inj) 1,000 mls @ 100 mls/hr IV.CONT .Q10H [facility] Last Admin: 04/22/18 06:11 Dose: 100 mls/hr Lactulose (Lactulose Liq) 30 ml PO DAILY PRN PRN Reason: SEVERE CONSITIPATION Ondansetron HCl (Zofran Inj) 4 mg IV.PUSH Q6H PRN PRN Reason: NAUSEA OR VOMITING Pantoprazole Sodium (Protonix) 40 mg PO DAILY [facility] Last Admin: 04/22/18 08:49 Dose: 40 mg Senna/Docusate Sodium (Lizeth-Colace) 1 tab PO BID [facility] Last Admin: 04/22/18 08:50 Dose: Not Given Sennosides (Senokot) 17.2 mg PO Q12H PRN PRN Reason: Moderate Constipation Sodium Chloride (Ns Flush) 2 ml IV.FLUSH BID [facility] Last Admin: 04/22/18 08:50 Dose: Not Given Sodium Chloride (Ns Flush) 2 ml IV.FLUSH PRN PRN PRN Reason: FLUSH AFTER USING IV ACCESS Last Admin: 04/21/18 01:53 Dose: 2 ml Physical Exam Vital signs: Last Vital Signs Temp 97.5 F L 04/22/18 12:00 Pulse 89 04/22/18 12:00 Resp 20 04/22/18 12:00 BP 101/56 L 04/22/18 12:00 Pulse Ox 97 04/22/18 12:00 Intake & Output 04/20/18 04/21/18 04/22/18 04/23/18 06:59 06:59 06:59 06:59 Intake Total 2520 / 2520 3450 / 3450 Output Total 75 / 75 200 / 200 Balance 2445 / 2445 3250 / 3250 Weight 60.1 kg 60.1 kg Narrative: GENERAL: This is a well-nourished, well-developed 82yo w female, in no apparent distress. SKIN: No rashes, ecchymoses or lesions. Warm and dry. HEAD: Atraumatic. Normocephalic. No temporal or scalp tenderness. EYES: Pupils equal round and reactive. No injection or drainage. ENT: Nose without bleeding, purulent drainage or septal hematoma. Airway patent. NECK: Trachea midline. No lymphadenopathy. Supple, nontender, no meningeal signs. thyroid smooth not enlarged CARDIOVASCULAR: Regular rate and rhythm + murmurs, no gallops, or rubs. No JVD. RESPIRATORY: Clear to auscultation. Breath sounds equal bilaterally. No wheezes , rales, or rhonchi. GASTROINTESTINAL: Abdomen soft, non-tender, nondistended. No guarding. MUSCULOSKELETAL: Extremities without clubbing, cyanosis, or edema. NEUROLOGICAL: Awake and alert. Cranial nerves II through XII intact. No focal neurological deficits. Normal speech LYMPH no inguinal axillary or cervical lad noted . Results Labs CBC & Chem 7: 04/21/18 05:55 04/21/18 05:55 Caprini VTE Risk Assessment Caprini VTE Risk Assessment: No/Low Risk (score <= 1) Caprini Risk Assessment Model: Point Value = 1 Point Value = 2 Point Value = 3 Point Value = 5 Age 41-60 Minor surgery BMI > 25 kg/m2 Swollen legs Varicose veins or History of unexplained or recurrent spontaneous Oral contraceptives or hormone replacement Sepsis (< 1 month) Serious lung disease, including pneumonia (< 1 month) Abnormal pulmonary function Acute myocardial infarction Congestive heart failure (< 1 month) History of inflammatory bowel disease Medical patient at bed rest Age 61-74 Arthroscopic surgery Major open surgery (> 45 min) Laparoscopic surgery (> 45 min) Malignancy Confined to bed (> 72 hours) Immobilizing plaster cast Central venous access Age >= 75 History of VTE Family history of VTE Factor V Leiden Prothrombin [id number] Lupus anticoagulant Anticardiolipin antibodies Elevated serum homocysteine Heparin-induced thrombocytopenia Other congenital or acquired thrombophilia Stroke (< 1 month) Elective arthroplasty Hip, pelvis, or leg fracture Acute spinal cord injury (< 1 month) Prophylaxis Regimen: Total Risk Factor Score Risk Level Prophylaxis Regimen 0-1 Low Early ambulation 2 Moderate Order ONE of the following: *Sequential Compression Device (SCD) *Heparin 5000 units SQ BID 3-4 Higher Order ONE of the following medications: *Heparin 5000 units SQ TID *Enoxaparin/Lovenox 40 mg SQ daily (WT < 150 kg, CrCl > 30 mL/min) *Enoxaparin/Lovenox 30 mg SQ daily (WT < 150 kg, CrCl > 10-29 mL/min) *Enoxaparin/Lovenox 30 mg SQ BID (WT < 150 kg, CrCl > 30 mL/min) AND/OR *Sequential Compression Device (SCD) 5 or more Highest Order ONE of the following medications: *Heparin 5000 units SQ TID (Preferred with Epidurals) *Enoxaparin/Lovenox 40 mg SQ daily (WT < 150 kg, CrCl > 30 mL/min) *Enoxaparin/Lovenox 30 mg SQ daily (WT < 150 kg, CrCl > 10-29 mL/min) *Enoxaparin/Lovenox 30 mg SQ BID (WT < 150 kg, CrCl > 30 mL/min) AND *Sequential Compression Device (SCD) Assessment and Plan Plan ACUTE VIRAL GASTROENTERITIS - resoved, cont supportive care ORTHOSTATIC HYPOTENSION - due to dehydration and fluid losses, HYPERLIPIDEMIA rsume home statin CARDIOMYOPATHY - follow up w cardiology, discussed, no chf noted BRADYCARDIA - on coreg, discussed to hold and fu w cardiology ANEMIA - dilutional? outpatient fu discussed no acute blood loss clinically stable for dc home and outpatient followup. H&P: Quality VTE Deep Vein Thrombosis/Pulmonary Embolism Present on Admission: No
--- NOTE | 2018-04-22 18:51 | P.DS ---
DS: Providers Date of admission: 04/20/18 22:06 Primary care physician: Eren Darnell MD Brief History from admission: Ms. Oswald is a pleasant 82-year-old female with a history of GERD, hyperlipidemia who presented to the emergency department on 04/20/2018 due to generalized weakness. Her symptoms started 2 days prior to this admission. She has not been eating or drinking well in the last 2 days. This morning she reports 4-5 loose bowel movements. She denies any recent antibiotics use. Her family members were here from out of town and 2 of them had diarrhea recently. Patient denies any nausea vomiting. Patient denies any chest pain, shortness of breath, fever or chills. She denies any urinary symptoms. Past medical history: Liver abscess when she was a child, hyperlipidemia, GERD Past surgical history: Liver abscess surgery at the age of 9, hysterectomy, knee surgeries. Social history: Patient denies using tobacco or alcohol. Family history: No family history of Alzheimer's or Parkinson's. DS: Diagnosis Discharge Diagnosis (1) Gastroenteritis and colitis, viral: Status: Acute DS: Summary patient was admitted and continued on ivf for hydration and supportive care. A stool for c dif was negative, she remained afebrile and had resolution of her symptoms. She was tolerating diet and otherwise clinically stable for discharge home. Time Spent with Patient Total time spent providing and/or coordinating discharge services: Greater than 30 minutes Quality: VTE Deep Vein Thrombosis/Pulmonary Embolism Present on Admission: No Results Impressions ITS Impressions Chest X-Ray 04/20/18 19:45 CONCLUSION: 1. No acute cardiopulmonary disease. There is no evidence of pneumonia. 2. Right apical pleural parenchymal change again noted characteristic of scarring. 3. Moderate size hiatal hernia which is increased in size from the prior study. Discharge Plan Discharge Disposition Patient Disposition: Discharge Home Discharge Condition Condition: Good Discharge Order Discharge Orders: Discharge Order (Routine); Ordered 04/22/18 Ordered By: Gisela Guthrie Physicians Team Primary Care Provider: Eren Darnell Attending Provider: Gisela Guthrie Rxs /Orders / Referrals /Forms Prescriptions: Continue omeprazole 40 mg Capsule,Delayed Release(Dr/Ec) 40 mg PO DAILY RF: 0 rosuvastatin [Crestor] 5 mg Tablet 5 mg PO DAILY RF: 0 Discontinued carvedilol 3.125 mg Tablet 3.125 mg PO BID RF: 0 Referrals: Eren Darnell MD [Primary Care Provider] - See Instructions ( Please call the physician's office to book the appointment to be seen within [2-3 d ]. Your Health Problems: Goals to Promote Your Health: To prevent worsening of your condition To maintain your health at the optimal level Directions to Meet Your Goals: Take your medications as prescribed Follow your dietary instruction Follow activity as directed Keep your appointments as scheduled Take your immunizations and boosters as scheduled If your symptoms worsen call your PCP If no PCP go to Urgent Care or Emergency Room Smoking is dangerous to your health. Avoid second hand smoke. You may reach the 24-hour crisis hotline for domestic abuse at .) Discharge Instructions Patient Printed Instructions: Omeprazole (By mouth), Rosuvastatin (By mouth), Hypotension (GEN) Status ED Status: Left Department Discharge Information Discharge Date/Time: 04/22/18 14:00
== END 2018-04-22 14:00 | disposition home or self-care (01) ==
LOC: PHED 18:28 → PHEDA 18:28 → PH3 04-21 01:04
PROVIDERS: ADMIT Internal Medicine; ATTEND Internal Medicine
DX: I95.1 Orthostatic hypotension; A08.4 Viral intestinal infection, unspecified; Z90.710 Acquired absence of both cervix and uterus; E86.0 Dehydration; E78.00 Pure hypercholesterolemia, unspecified; R53.81 Other malaise; Z88.0 Allergy status to penicillin; K21.9 Gastro-esophageal reflux disease without esophagitis; E78.5 Hyperlipidemia, unspecified